=== PATIENT | female | born 1960 | race Caucasian/White ===

== ENCOUNTER → 2016-05-12 | Outpatient (CLI) | payer BC | LOC: HEART 5 11:09 | DX: J44.9 Chronic obstructive pulmonary disease, unspecified (principal); F17.210 Nicotine dependence, cigarettes, uncomplicated; R94.2 Abnormal results of pulmonary function studies | CPT/HCPCS: 94060; 94729 ==

== ENCOUNTER → 2016-05-30 | Outpatient (CLI) | payer BC | LOC: HEART 5 14:19 | DX: J44.9 Chronic obstructive pulmonary disease, unspecified (principal); R06.02 Shortness of breath | CPT/HCPCS: 94060 ==

== ENCOUNTER 2021-05-21 20:02 | Emergency (ER) | payer OTHER ==
[~2021-05-21 20:02] MED LIST: CLARITIN10 M2 PO; CYCLOBENZAPRINE10 MG PO; DILTIAZEM 24HR180 M1 PO; DOXYCYCLINE HY100 M2 PO; FUROSEMIDE20 MG PO; IBUPROFEN600 MG PO; LEVOFLOXACIN500 MG PO; NORCO 7.5-3251 EACH PO; PERCOCET 5/325 T1 EA PO; PREDNISONE 20 M20 MG GT; PREDNISONE20 MG PO; PROAIR DIGIHAL90 MCG INH; SINGULAIR10 MG PO; SYNTHROID150 MCG PO; TAGAMET HB200 MG PO
[2021-05-21 20:52] LABS: HEMOGLOBIN 12.5 gm/dl (12.3-15.3); RED BLOOD COUNT 4.33 M/UL (4.00-5.10); WHITE BLOOD COUNT 11.9 K/UL (4.5-11.0)
== END 2021-05-21 22:41 | disposition home or self-care (01) ==
LOC: ER1 20:02
PROVIDERS: Physician Assistant
DX: J44.1 Chronic obstructive pulmonary disease with (acute) exacerbation (principal); J90 Pleural effusion, not elsewhere classified; E11.9 Type 2 diabetes mellitus without complications; I10 Essential (primary) hypertension; Z85.118 Personal history of other malignant neoplasm of bronchus and lung; Z91.041 Radiographic dye allergy status
CPT/HCPCS: 36600; 71045; 80053; 82550; 82553; 82803; 83605; 83880; 84484; 85025; 85379; 87040; 93005; 94640; 94664; 99284